=== PATIENT | male | born 1960 | race Caucasian/White ===

== ENCOUNTER 2022-06-25 13:50 | Inpatient (IN) ==
[2022-06-25 14:48] LABS: Bilirubin,Urine Negative (Negative); Blood,Urine Negative (Negative); Clarity,Urine Clear (Clear); Color,Urine Light-Yellow (Yellow); Glucose,Urine (UA) Normal (Normal); Ketones,Urine Negative (Negative); Leukocyte Esterase,Urine Negative (Negative); Nitrite,Urine Negative (Negative); Protein,Urine Negative (Neg-Trace); Urobilinogen,Urine Normal (Normal)
[2022-06-25 14:56] LABS: Basophils # 0.1 K/mcL (0.0-0.2); Basophils % 1.2 %; Eosinophils # 0.2 K/mcL (0.0-0.6); Hematocrit 44.5 % (37.5-50.1); Hemoglobin 14.3 g/dL (12.9-16.9); Immature Granulocytes % 0.2 % (0-4); Lymphocytes # 1.7 K/mcL (0.6-4.6); Lymphocytes % 28.7 %; Mean Corpuscular HGB Conc 32.1 g/dL (31.6-35.5); Mean Corpuscular Hemoglobin 29.4 pg (28.0-33.3); Mean Corpuscular Volume 91.4 fL (83.0-100.0); Mean Platelet Volume 10.4 fL (9.4-12.4); Monocytes # 0.5 K/mcL (0.0-1.3); Monocytes % 8.1 %; Neutrophils # 3.4 K/mcL (1.6-8.9); Platelet Count 316 K/mcL (140-400); Red Blood Count 4.87 M/mcL (4.19-5.50); Red Cell Distribution Width 14.4 % (11.5-14.5); Segmented Neutrophils % 57.8 %; White Blood Count 5.8 K/mcL (4.3-11.1)
[2022-06-25 15:04] LABS: Amphetamine Screen,Urine Negative ng/mL (Cutoff=1000); Barbiturate Screen,Urine Negative ng/mL (Cutoff=200); Benzodiazepines Screen,Urine Negative ng/mL (Cutoff=200); Cannabinoid Screen,Urine Negative ng/mL (Cutoff = 50); Cocaine Screen,Urine Negative ng/mL (Cutoff= 300); Opiate Screen,Urine Negative ng/mL (Cutoff=300); Phencyclidine Screen,Urine Negative ng/mL (Cutoff=25)
[2022-06-25 15:12] LABS: Acetaminophen < 10 mcg/mL (10-20); BUN/Creatinine Ratio 12 (6-26); Blood Urea Nitrogen 10 mg/dL (8-23); Calcium 9.4 mg/dL (8.6-10.3); Carbon Dioxide 25 mEq/L (23-29); Chloride 105 mEq/L (98-107); Ethanol < 10 mg/dL (Less than 10); Glucose 91 mg/dL (70-105); Osmolality,Calculated 283 (280-300); Salicylate < 2.5 mg/dL (15.0-30.0); Sodium 137 mEq/L (136-145)
[2022-06-25 18:59] LABS: Influenza A PCR Negative (Negative); Influenza B PCR Negative (Negative); Resp. Syncytial Virus PCR Negative (Negative)
[2022-06-25 19:01] LABS: SARS-CoV-2 by PCR (In House) Negative (Negative)
[2022-06-25] MEDS ORDERED: *HR* LORazepam 2 MG/ML VIAL IM PRN (20:08)
[2022-06-25] MEDS ORDERED: Haloperidol Lactate 5 MG/ML VIAL IM PRN (20:08)
[2022-06-25] MEDS ORDERED: haloperidoL 5 MG TABLET PO PRN (20:08)
[2022-06-25] MEDS ORDERED: *HR* LORazepam 1 MG TABLET PO PRN (20:08)
[2022-06-25] MEDS ORDERED: Acetaminophen 325 MG TABLET PO PRN (20:08)
[2022-06-25] MEDS: hydrOXYzine pamoate 25 MG CAPSULE PO PRN (22:14)
[2022-06-25] MEDS: traZODone 50 MG TABLET PO PRN (22:14)
[2022-06-26] MEDS ORDERED: Mag Hydrox/Al Hydrox/Simeth 30 ML UDC PO PRN (08:07)
[2022-06-26] MEDS ORDERED: MOM Conc 10 ML UD.LIQ PO PRN (08:07)
[2022-06-26] MEDS ORDERED: Metoprolol XL (24 HR) Succ 25 MG TAB.ER.24H PO SCH (09:00)
[2022-06-26] MEDS ORDERED: Nicotine 21 MG PATCH.TD24 TD SCH (09:00)
[2022-06-26 11:13] VITALS: O2SAT 94
[2022-06-26 20:14] VITALS: BP 151/88; PULSE 95; TEMP 98.5
[2022-06-26] MEDS: hydrOXYzine pamoate 25 MG CAPSULE PO PRN (21:20)
[2022-06-26] MEDS: traZODone 50 MG TABLET PO PRN (21:20)
== END 2022-06-27 03:02 | disposition other institution (70) | DRG 885 ==
LOC: EMEROOARM 13:50 → 1ANU 20:06
PROVIDERS: ADMIT Psychiatry & Neurology Psychiatry; ATTEND Psychiatry & Neurology Psychiatry

== ENCOUNTER 2022-06-27 03:04 | Inpatient (IN) ==
[2022-06-27] MEDS ORDERED: Tdap (Boostrix) Vaccine 0.5 ML SYRINGE IM ONE (03:50)
[2022-06-27 03:54] LABS: Basophils # 0.1 K/mcL (0.0-0.2); Basophils % 1.2 %; Eosinophils # 0.3 K/mcL (0.0-0.6); Eosinophils % 5.8 %; Hematocrit 42.5 % (37.5-50.1); Hemoglobin 13.7 g/dL (12.9-16.9); Immature Granulocytes % 0.2 % (0-4); Lymphocytes % 33.9 %; Mean Corpuscular HGB Conc 32.2 g/dL (31.6-35.5); Mean Corpuscular Hemoglobin 29.7 pg (28.0-33.3); Monocytes # 0.5 K/mcL (0.0-1.3); Monocytes % 9.2 %; Neutrophils # 2.9 K/mcL (1.6-8.9); Platelet Count 279 K/mcL (140-400); Red Blood Count 4.62 M/mcL (4.19-5.50); Red Cell Distribution Width 14.6 % (11.5-14.5); Segmented Neutrophils % 49.7 %; White Blood Count 5.9 K/mcL (4.3-11.1)
[2022-06-27 04:03] LABS: Prothrombin Time 10.9 Seconds (9.4-12.1)
[2022-06-27 04:12] LABS: BUN/Creatinine Ratio 19 (6-26); Blood Urea Nitrogen 19 mg/dL (8-23); Calcium 9.1 mg/dL (8.6-10.3); Carbon Dioxide 27 mEq/L (23-29); Chloride 107 mEq/L (98-107); Glucose 106 mg/dL (70-105); Osmolality,Calculated 281 (280-300); Potassium 4.5 mEq/L (3.5-5.1); Sodium 134 mEq/L (136-145); Troponin I < 0.03 ng/mL (< 0.04)
[2022-06-27] MEDS ORDERED: Mag Hydrox/Al Hydrox/Simeth 30 ML UDC PO PRN (05:56)
[2022-06-27] MEDS ORDERED: haloperidoL 5 MG TABLET PO PRN (05:56)
[2022-06-27] MEDS ORDERED: *HR* LORazepam 1 MG TABLET PO PRN (05:56)
[2022-06-27] MEDS ORDERED: Haloperidol Lactate 5 MG/ML VIAL IM PRN (05:56)
[2022-06-27] MEDS ORDERED: *HR* LORazepam 2 MG/ML VIAL IM PRN (05:56)
[2022-06-27] MEDS ORDERED: MOM Conc 10 ML UD.LIQ PO PRN (05:56)
[2022-06-27] MEDS: Acetaminophen 325 MG TABLET PO PRN ×3 (06:22→20:51)
[2022-06-27] MEDS: Nicotine 21 MG PATCH.TD24 TD SCH (09:00)
[2022-06-27] MEDS ORDERED: Metoprolol XL (24 HR) Succ 25 MG TAB.ER.24H PO SCH (09:00)
[2022-06-27] MEDS: traZODone 50 MG TABLET PO PRN (20:50)
[2022-06-27] MEDS: hydrOXYzine pamoate 25 MG CAPSULE PO PRN (20:50)
[2022-06-28] MEDS: Nicotine 21 MG PATCH.TD24 TD SCH (08:13)
[2022-06-28] MEDS: hydrOXYzine pamoate 25 MG CAPSULE PO PRN (08:13)
[2022-06-28 19:46] VITALS: BP 172/96; PULSE 74; TEMP 97.5; O2SAT 96
[2022-06-28] MEDS: traZODone 50 MG TABLET PO PRN (21:21)
== END 2022-06-28 23:59 | disposition other institution (70) | DRG 885 ==
LOC: EMEROOARM 03:04 → 1ANU 05:52
PROVIDERS: ADMIT Psychiatry & Neurology Psychiatry; ATTEND Psychiatry & Neurology Psychiatry